=== PATIENT | female | born 1995 | race Caucasian/White ===

== ENCOUNTER 2021-02-20 06:37 | Outpatient (RCR) | payer BC, SELFPAY ==
[2021-02-20] MEDS: RHO(D) IMMUNE GLOBULIN 300 MCG/2 ML SYRINGE IM (18:45)
== END 2021-05-21 23:59 | disposition home or self-care (01) ==
LOC: ANHLAB 06:37
PROVIDERS: Visit Provider Obstetrics & Gynecology
DX: Z29.13 Encounter for prophylactic Rho(D) immune globulin (principal); O36.0190 Maternal care for anti-D [Rh] antibodies, unspecified trimester, not applicable or unspecified; Z3A.00 Weeks of gestation of pregnancy not specified
CPT/HCPCS: 36415; 85461; 90384; 96372; J2790

== ENCOUNTER 2021-05-15 04:46 | Inpatient (IN) | payer BC, SELFPAY ==
[2021-05-15] VITALS (93 sets, daily range): BP systolic 58–154; BP diastolic 43–123; PULSE 68–227; RESP 16–18; TEMP 36.3–37.1; O2SAT 84–100; BMI 35.7
--- NOTE | 2021-05-15 05:20 | LDADM ---
This patient, Tia Lr, was admitted to Labor/Delivery/Recovery 104 on 05/15/21 at 04:46. Plans for labor, pain management and were discussed with patient. Patient/family oriented to hospital policies and general routines including ID bracelet, bed and alarms, visiting hours, pain management, procedures, bathroom and other care routines, personal items, smoking policy, room service/diet and guest tray routines, infant security routines, and visiting hours. Patient/Family are encouraged to report perceived risks to care and to ask questions if they do not understand what they are told or what they should do. See OBIX for further documentation.
[2021-05-15 05:26] LABS: Basophils Percent Auto 0.4 % (0.2-1.2); Eosinophils Absolute Auto 0.1 K/mm3 (0-0.3); Eosinophils Percent Auto 1.6 % (0-4.4); Hematocrit 41.3 % (37.0-47.0); Hemoglobin 12.9 g/dL (12.0-15.0); Immature Granulocyte Absolute 0.03 K/mm3 (0.00-0.031); Immature Granulocyte Percent A 0.3 % (0-0.5); Lymphocytes Absolute Auto 2.17 K/mm3 (0.9-3.2); Lymphocytes Percent Auto 24.1 % (18.3-44.2); Mean Corpuscular HGB Conc 31.2 g/dl (32-36); Mean Corpuscular Hemoglobin 24.5 pg (26-34); Mean Corpuscular Volume 78.5 fl (80-100); Mean Platelet Volume 10.9 fl (7.4-10.4); Monocytes Absolute Auto 0.6 K/mm3 (0.1-0.6); Monocytes Percent Auto 6.7 % (2.6-8.5); Neutrophils Percent Auto 66.9 % (45.5-73.1); Platelet Count Result 248 k/mm3 (150-375); Red Blood Count 5.26 M/mm3 (4.2-5.4); Red Cell Distribution Width 15.1 % (11.5-14.5)
[2021-05-15] MEDS: LACTATED RINGERS 1,000 ML 125 ML IV CONT ×2 (05:30→11:18)
[2021-05-15] MEDS: OXYTOCIN 30 UNITS/NS 500 ML 30 UNITS/500 ML BAG 6 UNITS IV CONT (05:31)
--- NOTE | 2021-05-15 07:03 | PM.IMHP ---
H&P: HPI History of Present Illness Date/Time: 05/15/21 07:03 25-year-old 1 para 0 with last menstrual period of 08/05/2020/EDC of 05/10/2021, presents at 40 and half weeks gestation for induction of labor. Her cervix is favorable. She has an 11 week ultrasound confirming dates and she is negative for group B strep. Risks and benefits of induction reviewed Chief Complaint: postdates for induction Review of Systems Review of Systems: All systems reviewed & are unremarkable except as noted in HPI and below PMFSH Family History Family History Other No pertinent family history Social History Social History Smoking status: Never smoker Substance use: never Spiritual care concerns: No Meds Home Medications and Allergies Home Medications Medication Instructions Recorded Confirmed Type PNV cmb#95-ferrous fumarate-FA 1 tablet PO DAILY 04/24/21 04/24/21 History [] docusate sodium [Colace] 50 mg PO DAILY 04/24/21 04/24/21 History ferrous sulfate [Iron (ferrous 325 mg PO DAILY 04/24/21 04/24/21 History sulfate)] Allergies Allergy/AdvReac Type Severity Reaction Status Date / Time No Known Allergies Allergy Verified 04/24/21 11:41 Vital Signs Vital Signs - 24 hr 05/15/21 05:05 05/15/21 05:15 05/15/21 05:30 Temperature Pulse Rate 90 99 124 H Blood Pressure 135/96 H 136/103 H 123/94 H 05/15/21 05:45 05/15/21 05:59 05/15/21 06:01 Temperature 97.6 F Pulse Rate 111 H 105 H Blood Pressure 136/88 124/84 05/15/21 06:15 05/15/21 06:31 05/15/21 06:46 Temperature Pulse Rate 98 84 81 Blood Pressure 129/109 H 128/86 132/86 05/15/21 07:01 Temperature Pulse Rate 74 Blood Pressure 128/93 H Exam Const: General: no acute distress Eyes: General: appearance normal, both eyes and all related structures Neck: Neck: supple and no JVD Thyroid: thyroid normal Resp: Effort & Inspection: normal respiratory effort Auscultation: clear to auscultation bilaterally Cardio: Rate: regular rate Rhythm: regular rhythm GI: Inspection: non-distended GI Palp: Yes Soft to palpation, No Tenderness to palpation present (GI) and No Guarding due to palpation present (GI) Auscultation: normal bowel sounds : External Female Exam: normal external appearance Speculum Exam - Vagina: normal appearance of the vagina Speculum Exam - Cervix: normal appearance of the cervix and Cervical os closed ( cervix 3/80/1. AROM clear. FHT is reassuring) Skin: General skin exam: no rashes or lesions noted Extrem: General: normal to inspection and no edema Psych: Mental Status: mental status grossly normal Affect: normal affect H&P: Results Labs Labs: Short CBC 05/15/21 Range/Units 05:15 WBC 9.0 (4.5-10.0) K/mm3 Hgb 12.9 (12.0-15.0) g/dL Hct 41.3 (37.0-47.0) % Plt Count 248 (150-375) k/mm3 Assessment and Plan Additional Plan impression: Postdates Plan: Medical induction of labor. Spontaneous vaginal delivery is expected. She has an epidural candidate
--- NOTE | 2021-05-15 08:54 | P.PNAN_ITS ---
Anes - Eval Pre Procedure Procedure: labor epidural Date/Time: 05/15/21 08:54 Surgeon: darrell Preop Diagnosis: pain during labor Pre Op Diagnosis: IOL Patient Data Age: 25 Gender: F Height: 1.57 m Weight: 88.63 kg Last Vital Signs Temp 36.4 C 05/15/21 07:00 Pulse 78 05/15/21 08:31 BP 124/89 05/15/21 08:31 Allergies Allergy/AdvReac Type Severity Reaction Status Date / Time No Known Allergies Allergy Verified 04/24/21 11:41 Home Medications Medication Instructions Recorded Confirmed Type PNV cmb#95-ferrous fumarate-FA 1 tablet PO DAILY 04/24/21 04/24/21 History [] docusate sodium [Colace] 50 mg PO DAILY 04/24/21 04/24/21 History ferrous sulfate [Iron (ferrous 325 mg PO DAILY 04/24/21 04/24/21 History sulfate)] Laboratory Tests 05/15/21 05/15/21 05/15/21 05:15 05:15 05:15 WBC 9.0 K/mm3 K/mm3 (4.5-10.0) RBC 5.26 M/mm3 M/mm3 (4.2-5.4) Hgb 12.9 g/dL g/dL (12.0-15.0) Hct 41.3 % % (37.0-47.0) MCV 78.5 fl L fl (80-100) MCH 24.5 pg L pg (26-34) MCHC 31.2 g/dl L g/dl (32-36) RDW 15.1 % H % (11.5-14.5) Plt Count 248 k/mm3 k/mm3 (150-375) MPV 10.9 fl H fl (7.4-10.4) Immature Gran % (Auto) 0.3 % % (0-0.5) Neut % (Auto) 66.9 % % (45.5-73.1) Lymph % (Auto) 24.1 % % (18.3-44.2) [place] % (Auto) 6.7 % % (2.6-8.5) Eos % (Auto) 1.6 % % (0-4.4) Baso % (Auto) 0.4 % % (0.2-1.2) Lymph # (Auto) 2.17 K/mm3 K/mm3 (0.9-3.2) [place] # (Auto) 0.6 K/mm3 K/mm3 (0.1-0.6) Eos # (Auto) 0.1 K/mm3 K/mm3 (0-0.3) Baso # (Auto) 0.0 K/mm3 K/mm3 (0.0-0.1) Abs Immat Gran (auto) 0.03 K/mm3 K/mm3 (0.00-0.031) Absolute Neuts (auto) 6.0 K/mm3 K/mm3 (1.3-6.7) Absolute Nucleated RBC 0.0 K/mm3 K/mm3 (0.0-0.012) Nucleated RBC % 0.0 % % (0.0-0.2) RPR Pending Blood Type O Negative Antibody Screen Negative Patient hx anesthesia problems: none Family hx anesthesia problems: none Results Review: All pre-operative results and documents have been reviewed as part of the pre-operative evaluation. [facility] Family History Family History Other No pertinent family history Social History Social History Smoking status: Never smoker Substance use: never Spiritual care concerns: No Exam Day of Procedure 05/15/21 08:54
[2021-05-15 11:36] LABS: Rapid Plasma Reagin Non-Reactive (NonReactive)
--- NOTE | 2021-05-15 13:58 | PM.OBPRVD ---
OB - Delivery Note Procedure Delivery date: 05/15/21 Procedure: mil Events: Elective Induction of Labor Induction method: AROM Delivery augmentation: Rupture of Membranes and Pitocin Delivery monitor: External FHT Route of delivery: Episiotomy description: None Laceration Description: Perineal - 1st Degree Delivery repair: vicryl Specimen: No Quantitative Blood Loss (ml): 159 Anesthesia type: Epidural Disposition: Floor Baby Date of : 05/15/21 Time of : 13:47 Weeks of gestation at delivery: 40 Infant gender: Male presentation: vertex position: Right Occiput Anterior Placenta delivery description: Spontaneous Cord Vessel Description: 3 Vessels score one minute: 9 score five minutes: 9
[2021-05-15] MEDS: OXYTOCIN 30 UNITS/NS 500 ML 30 UNITS/500 ML BAG 125 UNITS IV CONT (14:14)
[2021-05-15] MEDS: WITCH HAZEL 40 PADS 1 PAD TOPICAL (15:55)
[2021-05-15] MEDS: BENZOCAINE 20% AER SPR (*SP) 56 GM CAN 1 SPRAY TOPICAL (15:55)
--- NOTE | 2021-05-15 16:10 | PC.NURSE ---
Patient transferred to post room #277 per wheelchair. Support person present. Oriented to unit, room, information board, rooming in, admission packet and security measures. Patient verbalizes understanding.
[2021-05-15] MEDS: IBUPROFEN 600 MG TABLET PO (16:33)
[2021-05-15] MEDS: DOCUSATE SODIUM 100 MG CAPSULE PO (16:33)
[2021-05-15] MEDS: LANOLIN (LANSINOH) 7.5 GM CREAM 1 APPLIC TOPICAL (16:34)
[2021-05-16 00:05] VITALS: BP 121/73; PULSE 89; RESP 16; TEMP 36.5
[2021-05-16 03:48] VITALS: BP 124/82; PULSE 93; RESP 16; TEMP 36.2
[2021-05-16 04:58] LABS: Hemoglobin 10.1 g/dL (12.0-15.0)
[2021-05-16 07:30] VITALS: BP 120/74; PULSE 74; RESP 16; TEMP 36.4; O2SAT 99
--- NOTE | 2021-05-16 08:11 | PM.DS ---
DS: Admitting Diagnosis Discharge Date 05/16/21/ Admitting Diagnosis Term for induction of labor DS: Discharge Diagnosis Discharge Diagnosis (1) Term delivered: Code(s): O80 - Encounter for full-term uncomplicated delivery Status: Acute DS: Summary Hospital Course Hospital Course: Patient was admitted for induction labor. She underwent spontaneous vaginal delivery which was unremarkable. Her 24hour course was unremarkable. She remained afebrile. She was , ambulating, and generally without complaints. Time Spent with Patient Time attestation: Total time spent providing and/or coordinating discharge services: Exam Const: General: no acute distress Eyes: General: appearance normal, both eyes and all related structures Neck: Neck: supple and no JVD Thyroid: thyroid normal Resp: Effort & Inspection: normal respiratory effort Auscultation: clear to auscultation bilaterally Cardio: Rate: regular rate Rhythm: regular rhythm GI: Inspection: non-distended GI Palp: Yes Soft to palpation, No Tenderness to palpation present (GI) and No Guarding due to palpation present (GI) Auscultation: normal bowel sounds : General: Yes bladder normal to palpation External Female Exam: normal external appearance Speculum Exam - Vagina: normal vaginal discharge and No vaginal bleeding Speculum Exam - Cervix: nontender Bimanual exam- vagina & uterus: bladder normal to palpation and No Cervical tenderness present OB/external & speculum: No vaginal bleeding Skin: General skin exam: no rashes or lesions noted Extrem: General: normal to inspection and no edema Psych: Mental Status: mental status grossly normal Affect: normal affect DS: Data Data Completed and Pending Labs on day of discharge: Labs from last 24 hours 05/16/21 05/15/21 03:44 05:15 Hgb 10.1 L Hct 33.0 L RPR Non-reactive Discharge Plan Discharge Attending physician on discharge: Scott Sena Discharging Clinician: Scott Sena Patient Disposition: Home, Self-Care Activity: may shower, no straining and pelvic rest Diet: heart healthy Wound Care Instructions: follow printed instructions Patient Instructions: Antibiotic Form Stand Alone Forms: General Discharge Information Follow-up/Referrals: Scott Sena MD [Physician] - Discharge Medications: Continued Colace 50 mg Capsule 50 mg PO DAILY RF: 0 ferrous sulfate [Iron (ferrous sulfate)] 325 mg (65 mg iron) Tablet 325 mg PO DAILY RF: 0 PNV cmb#95-ferrous fumarate-FA [] 28 mg iron- 800 mcg Tablet 1 tablet PO DAILY RF: 0 Date of admission: 05/15/21 04:46 Primary Care Provider: PHYSICIAN,RED LEAD BURNER Admitting Provider: Scott Sena Attending physician on admission: Scott Sena Condition: Stable
--- NOTE | 2021-05-16 08:15 | PM.OBPNVD ---
OB - PN: Subj Subjective Date/time seen: 05/16/21 08:15 Patient comments: no complaints and pain well controlled baby status: doing well and nursing well OB - PN: Obj Data Labs CBC & Chem 7: 05/16/21 03:44 Labs: Laboratory Results - last 24 hr 05/15/21 05/16/21 05:15 03:44 Hgb 10.1 L Hct 33.0 L RPR Non-reactive OB - PN A/P Plan day: 1 Plan: routine care, discharge home and follow up 6 weeks Time Spent With Patient Time: Total time spent is greater than 50% in coordination of care (as documented) at patient's floor/unit and/or counseling patient: Time with patient: less than 15 minutes Review of Systems Review of Systems: All systems reviewed & are unremarkable except as noted in HPI and below Exam Const: General: no acute distress Eyes: General: appearance normal, both eyes and all related structures Neck: Neck: supple and no JVD Thyroid: thyroid normal Resp: Effort & Inspection: normal respiratory effort Auscultation: clear to auscultation bilaterally Cardio: Rate: regular rate Rhythm: regular rhythm GI: Inspection: non-distended GI Palp: Yes Soft to palpation, No Tenderness to palpation present (GI) and No Guarding due to palpation present (GI) Auscultation: normal bowel sounds : General: Yes bladder normal to palpation External Female Exam: normal external appearance Speculum Exam - Vagina: normal vaginal discharge and No vaginal bleeding Speculum Exam - Cervix: nontender Bimanual exam- vagina & uterus: bladder normal to palpation and No Cervical tenderness present OB/external & speculum: No vaginal bleeding Skin: General skin exam: no rashes or lesions noted Extrem: General: normal to inspection and no edema Psych: Mental Status: mental status grossly normal Affect: normal affect
[2021-05-16] MEDS: MULTIVIT/MIN/PREN/FOL AC/IRON TABLET 1 TAB PO (08:41)
[2021-05-16] MEDS: IBUPROFEN 600 MG TABLET PO ×2 (08:41)
[2021-05-16] MEDS: DOCUSATE SODIUM 100 MG CAPSULE PO (08:41)
--- NOTE | 2021-05-16 09:27 | WPDANLDPN2 ---
Anes-Prog Note L&D Date/Time: 05/16/21 09:27 Comfortable throughout: labor and delivery Neuraxial method: epidural Epidural/Spinal procedure site: clean & non-tender Neuro status: Neuro function grossly intact. Cardiovascular status: normal Respiratory status: normal Airway patency: baseline Mental status: baseline Post-Op hydration status: normal Vital Signs: Last Vital Signs Temp 36.4 C L 05/16/21 07:30 Pulse 74 05/16/21 07:30 Resp 16 05/16/21 07:30 BP 120/74 05/16/21 07:30 Pulse Ox 99 05/16/21 07:30 Pain score (VAS): 0 I/O: Intake & Output 05/15/21 05/16/21 05/16/21 23:59 07:59 15:59 Intake Total 1000 Output Total 135 Balance 865 Post-procedural complaints: none Patient feedback: Patient satisfied with anesthetic care.
--- NOTE | 2021-05-16 10:00 | PC.NURSE ---
Patient instructed to view the discharge video Mother & Baby Care, The First Two Weeks . Patient was given the opportunity and encouraged to ask questions. Patient verbalized understanding of information shared and has been given the mother/baby guide for home reference.
--- NOTE | 2021-05-16 10:04 | PC.NURSE ---
[id number] Introductions were made and consulted with patient to assess needs related to . Mother led conversation with her experience with feeding baby so far. Mother works well with her and is knowledgeable with . She is aware that the smal bruise on her areola is from poor attempt. Reviewed how to protect the nipples with a deep latch. Encouraged understanding the benefits of skin to skin, responding to feeding cues, frequencies of feeding 8-12 times in 24 hours (approximately 2-3 hours), duration of feedings, milk production, intake/output feeding sheet and signs of adequate intake. Discussed stimulating with skin to skin, hand expressing colostrum, touch and talking to infant to encourage eating at the breast. Reviewed positioning and alignment, supporting breast, off-centered (asymmetrical latch) and leading with the chin with big open wide gape. Mother is skin to skin with infant. Resources used to facilitate learning were used from the visual handout/mom and baby guide. Mother voiced understanding responding to feeding cues, may need to stimulating infant approximately 2-3 hours from the start of the last feeding, calling for assistance if the infant does not latch or there discomfort . Reported to primary RN.
[2021-05-16 11:55] VITALS: BP 109/75; PULSE 84; RESP 18; TEMP 36.6; O2SAT 99
--- NOTE | 2021-05-16 14:00 | PC.NURSE ---
[id number] Consulted with patient and mother led conversation with her experience with feeding baby so far. Mother works well with her . Mother understands good handwashing when working with infant, breast, nipples and how to protect the nipples with a deep latch, the benefits of skin to skin, responding to feeding cues, frequencies of feeding 8-12 times in 24 hours (approximately 2-3 hours), duration of feedings, milk production, intake/output feeding sheet and signs of adequate intake. Discussed stimulating with skin to skin, hand expressing colostrum, touch and talking to to encourage eating at the breast. Mother is observant of her sleepy infant boy after a circumcision and medication given orally for discomfort. Encouraged mother to hand express colostrum into a medicine cup to syringe feed her infant through a sleepy/reluctant feeding. Mother fed infant a total of 2 mls of expressed human milk to her . Resources used to facilitate learning were used from the mom and baby guide. Mother voiced understanding responding to feeding cues, may need to stimulating approximately 2-3 hours from the start of the last feeding, calling for assistance if the does not latch or there discomfort . Reported to primary RN.
[2021-05-19 10:17] VITALS: BP 128/87; PULSE 91; RESP 20; TEMP 36.8; O2SAT 100
== END 2021-05-16 15:15 | disposition home or self-care (01) | DRG 807 ==
LOC: ANHLDR 04:51 → ANHOB2 16:13
PROVIDERS: Admitting Provider Obstetrics & Gynecology; Visit Provider Obstetrics & Gynecology
DX: O48.0 Post-term pregnancy (principal); Z37.0 Single live birth; Z3A.40 40 weeks gestation of pregnancy; O36.8330 Maternal care for abnormalities of the fetal heart rate or rhythm, third trimester, not applicable or unspecified; O70.0 First degree perineal laceration during delivery
CPT/HCPCS: 36415; 85014; 85018; 85025; 86592; 86850; 86900; 86901; A9270; J2590; J2795; J7120

== ENCOUNTER 2024-04-28 10:47 | Outpatient (RCR) | payer OTHER, SELFPAY ==
--- OUTSIDE RECORDS SUMMARY | 2024-04-28 11:30 | XMS_ITS | Clinical Summary ---
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 Gender Identity Not on file Sexual Orientation Not on file Plan of Treatment Health Maintenance Due Date Last Done Comments Cervical Cancer Screening Pa p Smear (Age 21 to 29) Every 3 Years 1996 Cervical Cancer Screening 1996 Annual Physical 08/19/1999 Hepatitis C 2014 DTaP, Tdap and Td Vaccines ( 1 - Tdap) 08/19/2015 Hepatitis B Vaccines (1 of 3 - 19+ 3-dose series) 08/19/2015 COVID-19 Vaccine (2023-2 5 season) 2023 Influenza Adult (#1) 2023 HPV Vaccines Aged Out No longer eligi ble based on patient's age to complete this topic Meningococcal B Vaccine Aged Out No l onger eligible based on patient's age to complete this topic Meningococcal Vaccine Aged Out No elio suzy eligible based on patient's age to complete this topic Pneumococcal Vaccine: Pediat rics (0 to 5 Years) and At-Risk Patients (6 to 64 Years) Aged Out No longer eligible b ased on patient's age to complete this topic RSV Immunizations Under 20 Months Aged Out No longer eligible based on patient's age to complete this topic
[2024-04-28] MEDS: RHO(D) IMMUNE GLOBULIN 300 MCG/2 ML SYRINGE IM (14:17)
== END 2024-07-27 23:59 | disposition home or self-care (01) ==
LOC: ANHLAB 10:47
PROVIDERS: Visit Provider Obstetrics & Gynecology
DX: Z29.13 Encounter for prophylactic Rho(D) immune globulin (principal); O36.0190 Maternal care for anti-D [Rh] antibodies, unspecified trimester, not applicable or unspecified; Z3A.00 Weeks of gestation of pregnancy not specified
CPT/HCPCS: 36415; 85461; 86850; 86900; 86901; 90384; 96372; J2790

== ENCOUNTER 2024-07-16 09:02 | Inpatient (IN) | payer OTHER, SELFPAY ==
[2024-07-16] VITALS (13 sets, daily range): BP systolic 111–130; BP diastolic 67–86; PULSE 72–110; RESP 16–18; TEMP 36.4–37.1; O2SAT 99–100; BMI 37.0
--- OUTSIDE RECORDS SUMMARY | 2024-07-16 09:29 | XMS_ITS | Clinical Summary ---
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 Gender Identity Not on file Sexual Orientation [...] 08/19/2015 COVID-19 Vaccine (2023-2 5 season) 2023 HPV Vaccines Aged Out No longer eligi ble based on patient's age to complete this topic Meningococcal B Vaccine Aged Out No l onger eligible based on patient's age to complete this topic Meningococcal Vaccine Aged Out No elio suzy eligible based on patient's age to complete this topic Pneumococcal Vaccine: Pediat rics (0 to 5 Years) and At-Risk Patients (6 to 49 Years) Aged Out No longer eligible b ased on patient's age to complete this topic RSV Immunizations Under 20 Months Aged Out No longer eligible based on patient's age to complete this topic
[2024-07-16 10:03] LABS: Basophils Percent Auto 0.3 % (0.2-1.2); Eosinophils Absolute Auto 0.1 K/mm3 (0-0.3); Eosinophils Percent Auto 0.7 % (0-4.4); Hematocrit 40.3 % (37.0-47.0); Hemoglobin 12.6 g/dL (12.0-15.0); Immature Granulocyte Absolute 0.04 K/mm3 (0.00-0.031); Immature Granulocyte Percent A 0.4 % (0-0.5); Lymphocytes Absolute Auto 1.69 K/mm3 (0.9-3.2); Lymphocytes Percent Auto 16.5 % (18.3-44.2); Mean Corpuscular HGB Conc 31.3 g/dl (32-36); Mean Corpuscular Hemoglobin 24.5 pg (26-34); Mean Corpuscular Volume 78.4 fl (80-100); Mean Platelet Volume 11.2 fl (7.4-10.4); Monocytes Absolute Auto 0.6 K/mm3 (0.1-0.6); Monocytes Percent Auto 5.4 % (2.6-8.5); Neutrophils Absolute Auto 7.9 K/mm3 (1.3-6.7); Neutrophils Percent Auto 76.7 % (45.5-73.1); Platelet Count Result 241 k/mm3 (150-375); Red Blood Count 5.14 M/mm3 (4.2-5.4); Red Cell Distribution Width 15.6 % (11.5-14.5); White Blood Count 10.3 K/mm3 (4.5-10.0)
[2024-07-16] MEDS: OXYTOCIN 30 UNITS/NS 500 ML 30 UNITS/500 ML BAG 999 UNITS IV CONT (10:19)
--- NOTE | 2024-07-16 10:30 | P.PCNOB_ITS ---
OB - Vaginal Delivery Note Procedure Delivery date: 07/16/24 Induction method: None Delivery monitor: External FHT and External Uterine Route of delivery: Episiotomy description: None Laceration Description: Perineal - 1st Degree Delivery repair: vicryl Specimen: No Quantitative Blood Loss (ml): 62 Anesthesia type: Epidural Disposition: Floor Complications: No immediate complications Narrative: The patient was admitted with active labor 39-,5/7 weeks gestation. She went from 6 to complete very quickly. Artificial rupture membranes performed. She pushed delivered head spontaneously in the YASMEEN position. Anterior posterior shoulder delivered spontaneously. Cord clamped x2 and cut infant passed off the table given Apgars of 8 [id number] 9 [id number]. Cord blood was drawn. Placenta delivered intact spontaneously. 22units of Pitocin placed IV to help firm the uterus. A small first-degree laceration was noted was instilled with 1% xylocaine anesthesia the [id number] suture placed with 0 Vicryl blood loss was estimated 62cc. All sponge, needle, instrument counts were correct. There were no immediate complications [place] Baby Date of : 07/16/24 Time of : 10:16 Gestational Age by Date: 39 gender: Male presentation: vertex position: Right Occiput Anterior Placenta delivery description: Spontaneous Cord Vessel Description: 3 Vessels score one minute: 8 score five minutes: 9
--- NOTE | 2024-07-16 10:32 | P.DS_ITS ---
DS: Admitting Diagnosis Discharge Date Admitting Diagnosis Term DS: Discharge Diagnosis Discharge Diagnosis (1) Term delivered: Code(s): O80 - Encounter for full-term uncomplicated delivery Status: Acute DS: Summary Hospital Course Reason for hospitalization: Patient was admitted in active labor and underwent spontaneous vaginal delivery on 07/16/2024 Hospital Course: Patient's hospital course unremarkable. She remained afebrile. She was up, voiding without difficulty, eating regular diet, ambulating, and generally without complaints. Time Spent with Patient Time attestation: Total time spent providing and/or coordinating discharge services: Exam Const: General: cooperative, healthy appearing and comfortable Nutritional Appearance: average body habitus Orientation/consciousness: oriented to person, oriented to place and oriented to time HENMT: Head: normal to inspection Resp: Effort & Inspection: normal respiratory effort Cardio: Rate: regular rate Rhythm: regular rhythm Heart sounds: S1 normal heart sound present and S2 normal heart sound present GI: Inspection: normal to inspection (Fundus firm below the umbilicus) DS: Data Data Completed and Pending Labs on day of discharge: Labs from last 24 hours 07/16/24 09:55 WBC 10.3 H RBC 5.14 Hgb 12.6 Hct 40.3 MCV 78.4 L MCH 24.5 L MCHC 31.3 L RDW 15.6 H Plt Count 241 MPV 11.2 H Immature Gran % (Auto) 0.4 Neut % (Auto) 76.7 H Lymph % (Auto) 16.5 L [place] % (Auto) 5.4 Eos % (Auto) 0.7 Baso % (Auto) 0.3 Lymph # (Auto) 1.69 [place] # (Auto) 0.6 Eos # (Auto) 0.1 Baso # (Auto) 0.0 Abs Immat Gran (auto) 0.04 H Absolute Neuts (auto) 7.9 H Absolute Nucleated RBC 0.000 Nucleated RBC % 0.0 HIV 1&2 Ab/P24 Ag 4thGn Pending Discharge Plan Discharge Attending physician on discharge: Scott Lizarraga Discharging Clinician: Scott Lizarraga Patient Disposition: Home Activity: may shower, no straining and pelvic rest Diet: heart healthy Wound Care Instructions: follow printed instructions Patient Instructions: Antibiotic Form Patient Language: Czech Stand Alone Forms: General Discharge Information Follow-up/Referrals: Scott Lizarraga MD [Physician] - Discharge Medications: Continued PNV cmb#95-ferrous fumarate-FA [] 28 mg iron- 800 mcg Tablet 1 tablet PO DAILY Date of admission: 07/16/24 09:02 Primary Care Provider: UNKNOWN,DOCTOR Admitting Provider: Scott Lizarraga Attending physician on admission: Scott Lizarraga Condition: Stable
--- NOTE | 2024-07-16 10:34 | PM.IMHP ---
H&P: HPI History of Present Illness Date/Time: 07/16/24 10:34 Chief Complaint: Labor at term Narrative: 28-year-old female multiparous patient admitted at 39 and 5 7 weeks gestation in active labor has been uncomplicated. She is Rh negative and received RhoGAM at 28 weeks Review of Systems Review of Systems: All systems reviewed & are unremarkable except as noted in HPI and below PMFSH Family History Family History Other Patient denies significant medical history Social History Social History Smoking status: Never smoker Substance use: never Spiritual care concerns: No Meds Home Medications and Allergies Home Medications ?Medication ?Instructions ?Recorded ?Confirmed ?Type vit no.95-ferrous 1 tablet PO DAILY 04/24/21 04/24/21 History fumarate 28 mg-folic acid 800 mcg tablet () Allergies Allergy/AdvReac Type Severity Reaction Status Date / Time No Known Allergies Allergy Verified 04/24/21 11:41 Vital Signs Vital Signs - 24 hr 07/16/24 10:03 07/16/24 10:19 Temperature 97.5 F L Pulse Rate 110 H Blood Pressure 130/85 Exam Const: General: cooperative, healthy appearing and comfortable Nutritional Appearance: average body habitus Orientation/consciousness: oriented to person, oriented to place and oriented to time HENMT: Head: normal to inspection Resp: Effort & Inspection: normal respiratory effort Cardio: Rate: regular rate Rhythm: regular rhythm Heart sounds: S1 normal heart sound present and S2 normal heart sound present GI: Inspection: normal to inspection (Fundus firm below the umbilicus) H&P: Results Labs Labs: Short CBC 07/16/24 Range/Units 09:55 WBC 10.3 H (4.5-10.0) K/mm3 Hgb 12.6 (12.0-15.0) g/dL Hct 40.3 (37.0-47.0) % Plt Count 241 (150-375) k/mm3 Assessment and Plan Assessment and plan (1) Term : Code(s): Z34.90 - Encounter for supervision of normal , unspecified, unspecified trimester Status: Acute Plan Spontaneous vaginal delivery is imminent
[2024-07-16] MEDS: OXYTOCIN 30 UNITS/NS 500 ML 30 UNITS/500 ML BAG 125 UNITS IV CONT (10:50)
[2024-07-16 10:54] LABS: HIV 1/2 Ab P24 Ag Result Negative (Negative)
[2024-07-16 11:14] LABS: Syphilis IgG/IgM Antibody Negative (Negative)
--- NOTE | 2024-07-16 11:26 | LDADM ---
This patient, Tia Lr, was admitted to Labor/Delivery/Recovery 108 on 07/16/24 at 09:02. Plans for labor, pain management and were discussed with patient. Patient/family oriented to hospital policies and general routines including ID bracelet, bed and alarms, visiting hours, pain management, procedures, bathroom and other care routines, personal items, smoking policy, room service/diet and guest tray routines, infant security routines, and visiting hours. Patient/Family are encouraged to report perceived risks to care and to ask questions if they do not understand what they are told or what they should do. See [facility] for further documentation.
[2024-07-16] MEDS: WITCH HAZEL 40 PADS 1 PAD TOPICAL (12:38)
[2024-07-16] MEDS: BENZOCAINE 20% AER SPR (*SP) 56 GM CAN 1 SPRAY TOPICAL (12:38)
--- NOTE | 2024-07-16 12:50 | PC.NURSE ---
Patient transferred to post room #280 via wheelchair. Support person present. Oriented to unit, room, information board, rooming in, admission packet and security measures. Patient verbalizes understanding.
[2024-07-17 04:10] VITALS: BP 106/75; PULSE 84; RESP 18; TEMP 36.8; O2SAT 99
[2024-07-17 04:48] LABS: Hematocrit 35.2 % (37.0-47.0); Hemoglobin 11.1 g/dL (12.0-15.0)
[2024-07-17 07:25] VITALS: BP 111/69; PULSE 74; RESP 16; TEMP 37; O2SAT 99
--- NOTE | 2024-07-17 09:00 | PC.NURSE ---
Reviewed standard discharge information with patient including monitoring for required output, transition of stools, feeding 8-12 times every 24 hours, milk production, and follow up at [facility] and with pastry sous chef in the first week of life. Parents are encouraged to take the feeding log and continue to track feedings and output for the first week . Offered outpatient resources with Services at [facility]. Patient has the Mom/Baby Guide for further education and reference for common concerns, phone numbers, and guidance on when to call the doctor. A feeding plan was added to the ?s discharge plan. Patient states that she has no further questions or concerns regarding .??
--- NOTE | 2024-07-17 10:43 | PC.NURSE ---
Patient was given the opportunity to view the discharge video Mother & Baby Care, The First Two Weeks and to ask questions. Patient declined viewing the video and has been given the mother/baby guide for home reference.
--- NOTE | 2024-07-17 10:45 | PC.NURSE ---
Patient is Rubella Non-Immune and requires a booster vaccine of the MMR, which she is declining.
[2024-07-18 10:23] VITALS: BP 107/69; PULSE 87; RESP 18; TEMP 36.7; O2SAT 100
== END 2024-07-17 12:17 | disposition home or self-care (01) | DRG 807 ==
LOC: ANHLDR 10:34 → ANHOB2 13:52
PROVIDERS: Admitting Provider Obstetrics & Gynecology; Visit Provider Obstetrics & Gynecology
DX: O69.81X0 Labor and delivery complicated by cord around neck, without compression, not applicable or unspecified (principal); Z37.0 Single live birth; O70.0 First degree perineal laceration during delivery; Z3A.39 39 weeks gestation of pregnancy
CPT/HCPCS: 36415; 85014; 85018; 85025; 86593; 86703; 86850; 86900; 86901; A9270; G0432; J2590